=== PATIENT | female | born 2000 | race Caucasian/White ===

== ENCOUNTER 2022-04-24 11:26 | Emergency (ER) | payer OTHER ==
[2022-04-24 11:33] VITALS: BP 126/92; PULSE 86; RESP 17; TEMP 97.5; BMI 26.6
[2022-04-24] MEDS ORDERED: KETOROLAC TROMETHAMINE 15 MG/ML VIAL IVPUSH ONE (13:22)
[2022-04-24] MEDS ORDERED: KETOROLAC TROMETHAMINE 15 MG/ML VIAL ONE (13:28)
[2022-04-24] MEDS ORDERED: SODIUM CHLORIDE 0.9% 500 ML INFUS.BAG IV ONE (14:10)
[2022-04-24 14:41] LABS: BASO % 0.7 % (0-2.0); EOS % 5.9 % (0-4.5); HEMATOCRIT 39.5 % (32.4-45.2); HEMOGLOBIN 12.9 GM/dL (10.7-15.3); LYMPH % 21.8 % (8-40); MCHC 32.8 g/dl (32.0-36.0); MEAN CELL VOLUME 79.5 fl (80-96); MEAN PLT VOLUME 9.7 fl (7.5-11.1); MONO % 9.4 % (3.8-10.2); NEUT % 62.2 % (42.8-82.8); PLATELET COUNT 221 10^3/uL (134-434); RBC 4.97 M/mm3 (3.60-5.2); RDW 16.1 % (11.6-15.6); WHITE BLOOD COUNT 9.3 K/mm3 (4.0-10.0)
[2022-04-24 14:59] LABS: PH,URINE 6.5 (5.0-8.0); URINE APPEARANCE CLEAR; URINE BILIRUBIN NEGATIVE (NEGATIVE); URINE COLOR YELLOW; URINE GLUCOSE (UA) NEGATIVE (NEGATIVE); URINE KETONE NEGATIVE (NEGATIVE); URINE LEUK ESTERASE NEGATIVE (NEGATIVE); URINE NITRITE NEGATIVE (NEGATIVE); URINE PROTEIN NEGATIVE (NEGATIVE); URINE UROBILINOGEN 0.2 mg/dL (0.2-1.0)
[2022-04-24 15:02] LABS: CHLORIDE 105 mmol/L (98-107); SODIUM 139 mmol/L (136-145)
[2022-04-24 15:02] LABS: HCG,QUALITATIVE URINE Negative
[2022-04-24 15:04] LABS: ALBUMIN 3.3 g/dl (3.4-5.0); BLOOD UREA NITROGEN 10.1 mg/dL (7-18); CO2 28 mmol/L (21-32); GLUCOSE,RANDOM 99 mg/dL (74-106); LIPASE 127 U/L (73-393)
[2022-04-24 15:08] LABS: BILIRUBIN,TOTAL 0.6 mg/dL (0.2-1); CREATININE 0.6 mg/dL (0.55-1.3); SGOT/AST 46 U/L (15-37); SGPT/ALT 29 U/L (13-61); TOT PROT 7.5 g/dl (6.4-8.2)
[2022-04-24 15:10] LABS: ALK PHOS 70 U/L (45-117)
[2022-04-24 15:14] LABS: ANION GAP 6 MMOL/L (8-16)
[2022-04-24 15:56] LABS: BLOOD UREA NITROGEN 10.5 mg/dL (7-18); CALCIUM 8.2 mg/dL (8.5-10.1)
[2022-04-24 16:00] LABS: CREATININE 0.5 mg/dL (0.55-1.3)
[2022-04-24 16:01] LABS: BILIRUBIN,TOTAL 0.3 mg/dL (0.2-1); TOT PROT 6.3 g/dl (6.4-8.2)
== END 2022-04-24 15:49 | disposition home or self-care (01) ==
LOC: JER 11:26
PROC: 3E033NZ Introduction of Analgesics, Hypnotics, Sedatives into Peripheral Vein, Percutaneous Approach (ICD-10-PCS; principal; 2022-04-24)
DX: R10.9 Unspecified abdominal pain (principal)
CPT/HCPCS: 36415; 80053; 81003; 83690; 84703; 85025; 87086; 87491; 87591; 99284-25

== ENCOUNTER 2022-12-27 13:46 | Emergency (ER) | payer OTHER ==
[2022-12-27 14:03] VITALS: BP 133/100; PULSE 86; RESP 18; TEMP 98.6; BMI 29.0
[2022-12-27] MEDS ORDERED: valACYclovir HCL 1000 MG TABLET PO ONE (15:43)
[2022-12-27] MEDS ORDERED: predniSONE 20 MG TABLET (UD) PO ONE (15:43)
[2022-12-27] MEDS ORDERED: predniSONE 20 MG TABLET (UD) ONE (15:59)
[2022-12-27] MEDS ORDERED: valACYclovir HCL 500 MG TABLET (FP) ONE (16:04)
== END 2022-12-27 16:23 | disposition home or self-care (01) ==
LOC: JERFT 13:46
DX: G51.0 Bell's palsy (principal)
CPT/HCPCS: 93005; 93010; 99283-25

== ENCOUNTER 2023-01-08 10:31 | Emergency (ER) | payer OTHER ==
[2023-01-08 10:40] VITALS: BP 117/83; PULSE 65; RESP 18; TEMP 97.8; BMI 28.7
[2023-01-08] MEDS ORDERED: GABAPENTIN 300 MG CAPSULE PO ONE (12:25)
[2023-01-08] MEDS ORDERED: KETOROLAC TROMETHAMINE 15 MG/ML VIAL IM ONE (12:25)
[2023-01-08] MEDS ORDERED: GABAPENTIN 300 MG CAPSULE ONE (12:31)
[2023-01-08] MEDS ORDERED: KETOROLAC TROMETHAMINE 15 MG/ML VIAL ONE (12:33)
== END 2023-01-08 14:28 | disposition home or self-care (01) ==
LOC: JER 10:31 → JERFT 10:31
PROC: 3E0233Z Introduction of Anti-inflammatory into Muscle, Percutaneous Approach (ICD-10-PCS; principal; 2023-01-08)
DX: G50.0 Trigeminal neuralgia (principal)
CPT/HCPCS: 99284-25

== ENCOUNTER 2023-06-23 16:00 | Emergency (ER) | payer OTHER ==
[2023-06-23 16:08] VITALS: BP 120/84; PULSE 100; RESP 18; TEMP 98; BMI 29.8
== END 2023-06-23 18:04 | disposition home or self-care (01) ==
LOC: JERFT 16:00 → JER 16:00 → JERFT 18:04
PROC: 0HQJXZZ Repair Left Upper Leg Skin, External Approach (ICD-10-PCS; principal; 2023-06-23)
DX: S71.112A Laceration without foreign body, left thigh, initial encounter (principal); Y04.0XXA Assault by unarmed brawl or fight, initial encounter
CPT/HCPCS: 99283-25

== ENCOUNTER 2023-10-23 01:50 | Emergency (ER) | payer OTHER ==
[2023-10-23 01:57] VITALS: BP 122/84; PULSE 98; RESP 20; TEMP 97.9; BMI 30.2
[2023-10-23] MEDS ORDERED: ACETAMINOPHEN 325 MG TABLET (FP) ONE (03:16)
[2023-10-23] MEDS: ACETAMINOPHEN 500 MG TABLET (FP) PO ONE (03:20)
== END 2023-10-23 05:00 | disposition home or self-care (01) ==
LOC: JER 01:50
PROC: 2W3QX1Z Immobilization of Right Lower Leg using Splint (ICD-10-PCS; principal; 2023-10-23)
DX: S93.401A Sprain of unspecified ligament of right ankle, initial encounter (principal); M25.571 Pain in right ankle and joints of right foot; M25.471 Effusion, right ankle; W01.0XXA Fall on same level from slipping, tripping and stumbling without subsequent striking against object, initial encounter
CPT/HCPCS: 73610-TC-RT-FY; 73630-TC-RT-FY; 99283-25

== ENCOUNTER 2024-03-14 16:51 | Emergency (ER) | payer OTHER ==
[2024-03-14 16:58] VITALS: BP 107/97; PULSE 96; RESP 20; TEMP 97.9; BMI 29.0
== END 2024-03-14 18:53 | disposition home or self-care (01) ==
LOC: JERFT 16:51
PROC: 0HQCXZZ Repair Left Upper Arm Skin, External Approach (ICD-10-PCS; principal; 2024-03-14)
DX: S51.812A Laceration without foreign body of left forearm, initial encounter (principal); S69.91XA Unspecified injury of right wrist, hand and finger(s), initial encounter; X58.XXXA Exposure to other specified factors, initial encounter
CPT/HCPCS: 73130-TC-RT-FY; 99283-25

== ENCOUNTER 2024-06-01 03:28 | Emergency (ER) | payer OTHER ==
[2024-06-01 03:32] VITALS: BP 142/95; PULSE 108; RESP 16; TEMP 97.8; BMI 28.1
[2024-06-01] MEDS ORDERED: ALPRAZolam 1 MG TABLET PO PRN (03:42)
[2024-06-01] MEDS ORDERED: DIPHTH,PERTUSS(ACELL),TET 0.5 ML DISP.SYRIN IM ONE (04:12)
[2024-06-01] MEDS ORDERED: BACITRACIN 0.9 GM PACKET TP ONE (04:48)
[2024-06-01] MEDS ORDERED: BACITRACIN ZINC 15 GM TUBE TOPICAL OINTMENT ONE (04:50)
== END 2024-06-01 04:59 | disposition home or self-care (01) ==
LOC: JER 03:28
PROC: 0HQ3XZZ Repair Left Ear Skin, External Approach (ICD-10-PCS; principal; 2024-06-01)
DX: S01.312A Laceration without foreign body of left ear, initial encounter (principal); W26.8XXA Contact with other sharp object(s), not elsewhere classified, initial encounter
CPT/HCPCS: 99283-25

== ENCOUNTER 2024-07-03 23:30 | Emergency (ER) | payer OTHER, BC ==
[2024-07-03 23:37] VITALS: BP 131/89; PULSE 84; RESP 18; TEMP 97.3; BMI 30.2
[2024-07-04] MEDS ORDERED: MECLIZINE HCL 25 MG TABLET (FP) ONE (02:19)
[2024-07-04] MEDS: MECLIZINE HCL 25 MG TABLET (FP) PO ONE (02:21)
[2024-07-04] MEDS ORDERED: ONDANSETRON *ODT* 4 MG TABLET ONE (02:36)
[2024-07-04] MEDS: ONDANSETRON *ODT* 4 MG TABLET SL ONE (02:39)
== END 2024-07-04 02:50 | disposition home or self-care (01) ==
LOC: JER 23:30
DX: R42 Dizziness and giddiness (principal); R09.81 Nasal congestion; Z20.822 Contact with and (suspected) exposure to COVID-19
CPT/HCPCS: 0241U-QW; 70450-TC; 99284-25; Q0162

== ENCOUNTER 2024-07-27 02:11 | Emergency (ER) | payer BC, OTHER ==
[2024-07-27 02:16] VITALS: BP 133/95; PULSE 73; RESP 18; TEMP 97.5; BMI 29.8
[2024-07-27] MEDS ORDERED: diazePAM 5 MG TABLET ONE (03:28)
[2024-07-27] MEDS ORDERED: KETOROLAC TROMETHAMINE 30 MG/1 ML VIAL ONE (03:28)
[2024-07-27] MEDS: diazePAM 5 MG TABLET PO ONE (03:36)
[2024-07-27] MEDS: KETOROLAC TROMETHAMINE 30 MG/1 ML VIAL IM ONE (03:36)
== END 2024-07-27 04:43 | disposition home or self-care (01) ==
LOC: JER 02:11
PROC: 3E0133Z Introduction of Anti-inflammatory into Subcutaneous Tissue, Percutaneous Approach (ICD-10-PCS; principal; 2024-07-27)
DX: M54.50 Low back pain, unspecified (principal); X50.1XXA Overexertion from prolonged static or awkward postures, initial encounter; Y99.0 Civilian activity done for income or pay
CPT/HCPCS: 84703; 96372; 99284-25

== ENCOUNTER 2024-07-28 00:10 | Emergency (ER) | payer OTHER ==
[2024-07-28 00:31] VITALS: BP 130/91; PULSE 80; RESP 20; TEMP 98.2; BMI 29.8
[2024-07-28] MEDS ORDERED: KETOROLAC TROMETHAMINE 30 MG/1 ML VIAL ONE (01:08)
[2024-07-28] MEDS ORDERED: DEXAMETHASONE SOD PHOSPHATE 10 MG/1 ML VIAL ONE (01:08)
[2024-07-28] MEDS: DEXAMETHASONE SOD PHOSPHATE 10 MG/1 ML VIAL IM ONE (01:14)
[2024-07-28] MEDS: KETOROLAC TROMETHAMINE 30 MG/1 ML VIAL IM ONE (01:15)
== END 2024-07-28 03:37 | disposition home or self-care (01) ==
LOC: JER 00:10
PROC: 3E023GC Introduction of Other Therapeutic Substance into Muscle, Percutaneous Approach (ICD-10-PCS; principal; 2024-07-28)
PROC: 3E0133Z Introduction of Anti-inflammatory into Subcutaneous Tissue, Percutaneous Approach (ICD-10-PCS; 2024-07-28)
DX: M54.50 Low back pain, unspecified (principal)
CPT/HCPCS: 99284-25; J1100

== ENCOUNTER 2024-07-29 23:27 | Emergency (ER) | payer OTHER ==
[2024-07-29 23:43] VITALS: BP 139/93; PULSE 86; RESP 16; TEMP 98.7; BMI 29.8
[2024-07-30] MEDS ORDERED: LIDOCAINE 5% TOPICAL PATCH ONE (00:39)
[2024-07-30] MEDS ORDERED: KETOROLAC TROMETHAMINE 30 MG/1 ML VIAL ONE (00:39)
[2024-07-30] MEDS ORDERED: ACETAMINOPHEN 500 MG TABLET (FP) ONE (00:45)
[2024-07-30] MEDS: KETOROLAC TROMETHAMINE 30 MG/1 ML VIAL IM ONE (00:53)
[2024-07-30] MEDS: LIDOCAINE 5% TOPICAL PATCH TP ONE (00:53)
[2024-07-30] MEDS: ACETAMINOPHEN 500 MG TABLET (FP) PO ONE (00:54)
[2024-07-30] MEDS: LIDOCAINE PATCH REMOVAL MC SCH (01:16)
== END 2024-07-30 02:00 | disposition home or self-care (01) ==
LOC: JER 23:27
PROC: 3E0133Z Introduction of Anti-inflammatory into Subcutaneous Tissue, Percutaneous Approach (ICD-10-PCS; principal; 2024-07-30)
DX: M54.50 Low back pain, unspecified (principal); R20.0 Anesthesia of skin
CPT/HCPCS: 99284-25

== ENCOUNTER 2024-11-04 22:26 | Emergency (ER) | payer BC, OTHER ==
[2024-11-04 22:31] VITALS: BP 121/78; PULSE 79; RESP 20; TEMP 97.7; BMI 30.7
[2024-11-05 01:41] LABS: HIV INTERPRETATION NEGATIVE (NEGATIVE)
== END 2024-11-05 00:09 | disposition home or self-care (01) ==
LOC: JER 22:26
DX: R42 Dizziness and giddiness (principal); R00.2 Palpitations; R07.89 Other chest pain
CPT/HCPCS: 36415; 86803; 87389; 93005; 93010; 99284-25